=== PATIENT | male | born 1945 | race Caucasian/White ===

== ENCOUNTER 2017-08-08 12:23 | Outpatient (CLI) | payer MEDICARE, MEDICAID | END 2017-08-08 12:24 | disposition critical access hospital (66) | LOC: EMS 12:23 | PROVIDERS: ATTEND Surgery | DX: R06.00 Dyspnea, unspecified (principal) | CPT/HCPCS: A0425; A0427 ==

== ENCOUNTER 2017-09-09 08:00 | Outpatient (CLI) | payer MEDICARE, MEDICAID ==
[2017-09-10 00:05] LABS: BASOPHILS # (AUTO) 0.1 10^3/uL (0.0-0.1); BASOPHILS % (AUTO) 0.6 %; EOSINOPHILS # (AUTO) 0.1 10^3/uL (0.0-0.7); EOSINOPHILS % (AUTO) 0.5 %; LYMPHOCYTES # (AUTO) 0.7 10^3/uL (1.5-3.5); LYMPHOCYTES % (AUTO) 6.1 %; MEAN CORPUSCULAR HEMOGLOBIN 26.3 pg (27.0-31.0); MEAN CORPUSCULAR HGB CONC 32.3 g/dL (32.0-36.0); MEAN CORPUSCULAR VOLUME 81.6 fL (80.0-94.0); MEAN PLATELET VOLUME 8.2 fL (7.4-11.4); MONOCYTES # (AUTO) 0.9 10^3/uL (0.0-1.0); MONOCYTES % (AUTO) 7.1 %; NEUTROPHILS # (AUTO) 10.3 10^3/uL (1.5-6.6); NEUTROPHILS % (AUTO) 85.7 %; PLT - PLATELET COUNT 451 10^3/uL (130-450); RED BLOOD COUNT 4.57 10^6/uL (4.70-6.10)
[2017-09-10 00:26] LABS: ALBUMIN 2.1 g/dL (3.2-5.5); ALBUMIN/GLOBULIN RATIO 0.6 (1.0-2.2); BILIRUBIN,TOTAL 0.5 mg/dL (0.2-1.0); CALCIUM 8.6 mg/dL (8.5-10.3); CREATININE 0.7 mg/dL (0.6-1.2); TOTAL PROTEIN 5.4 g/dL (6.7-8.2)
== END 2017-09-09 08:01 | disposition home or self-care (01) ==
LOC: LAB.R 08:00
DX: J43.9 Emphysema, unspecified (principal); J44.9 Chronic obstructive pulmonary disease, unspecified
CPT/HCPCS: 80053; 85025

== ENCOUNTER 2017-09-09 16:00 | Outpatient (CLI) | payer MEDICARE, OTHER ==
[2017-09-09 18:24] LABS: BASOPHILS # (AUTO) 0.1 10^3/uL (0.0-0.1); BASOPHILS % (AUTO) 0.5 %; EOSINOPHILS # (AUTO) 0.1 10^3/uL (0.0-0.7); EOSINOPHILS % (AUTO) 0.7 %; HGB - HEMOGLOBIN 12.6 g/dL (14.0-18.0); LYMPHOCYTES # (AUTO) 0.7 10^3/uL (1.5-3.5); LYMPHOCYTES % (AUTO) 5.3 %; MEAN CORPUSCULAR HEMOGLOBIN 26.1 pg (27.0-31.0); MEAN CORPUSCULAR HGB CONC 31.8 g/dL (32.0-36.0); MEAN CORPUSCULAR VOLUME 82.2 fL (80.0-94.0); MEAN PLATELET VOLUME 8.1 fL (7.4-11.4); MONOCYTES # (AUTO) 0.9 10^3/uL (0.0-1.0); MONOCYTES % (AUTO) 7.3 %; NEUTROPHILS % (AUTO) 86.2 %; PLT - PLATELET COUNT 471 10^3/uL (130-450); RED BLOOD COUNT 4.81 10^6/uL (4.70-6.10); RED CELL DISTRIBUTION WIDTH 14.2 % (12.0-15.0); WHITE BLOOD COUNT 12.7 x10^3/uL (4.8-10.8)
[2017-09-09 18:36] LABS: ALBUMIN 2.2 g/dL (3.2-5.5); ALBUMIN/GLOBULIN RATIO 0.6 (1.0-2.2); BILIRUBIN,TOTAL 0.4 mg/dL (0.2-1.0); CALCIUM 8.7 mg/dL (8.5-10.3); CREATININE 0.7 mg/dL (0.6-1.2); TOTAL PROTEIN 5.7 g/dL (6.7-8.2)
== END 2017-09-09 16:01 | disposition home or self-care (01) ==
LOC: LAB.R 16:00
DX: L08.9 Local infection of the skin and subcutaneous tissue, unspecified (principal); J44.9 Chronic obstructive pulmonary disease, unspecified
CPT/HCPCS: 80053; 85025

== ENCOUNTER 2017-09-16 16:26 | Outpatient (CLI) | payer MEDICARE, MEDICAID ==
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
== END 2017-09-16 16:27 | disposition home or self-care (01) ==
LOC: PC 16:26
PROVIDERS: ATTEND Nurse Practitioner
DX: Z51.5 Encounter for palliative care (principal); J44.9 Chronic obstructive pulmonary disease, unspecified; E43 Unspecified severe protein-calorie malnutrition; B02.29 Other postherpetic nervous system involvement; H61.23 Impacted cerumen, bilateral; M06.9 Rheumatoid arthritis, unspecified; I10 Essential (primary) hypertension; I73.9 Peripheral vascular disease, unspecified; F41.9 Anxiety disorder, unspecified; R06.09 Other forms of dyspnea; F32.9 Major depressive disorder, single episode, unspecified; Z66 Do not resuscitate
CPT/HCPCS: 99306

== ENCOUNTER 2017-09-29 13:57 | Outpatient (CLI) | payer MEDICARE, MEDICAID | END 2017-09-29 13:58 | disposition critical access hospital (66) | LOC: EMS 13:57 | PROVIDERS: ATTEND Surgery | DX: R06.02 Shortness of breath (principal) | CPT/HCPCS: A0425; A0429 ==

== ENCOUNTER 2017-09-29 14:05 | Inpatient (IN) | payer MEDICARE, MEDICAID ==
[2017-09-29] MEDS ORDERED: IPRATROPIUM/ALBUTEROL 3 ML NEB INH STA (14:09)
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
[2017-09-29] MEDS ORDERED: SODIUM CHLORIDE 0.9% 1,000 ML IV ONE (14:21)
[2017-09-29 14:36] LABS: ABG HCO3 22.8 mmol/L (22.0-26.0); ABG PCO2 47 mmHg (34-45)
[2017-09-29 14:36] LABS: BASOPHILS # (AUTO) 0.1 10^3/uL (0.0-0.1); BASOPHILS % (AUTO) 0.2 %; EOSINOPHILS # (AUTO) 0.1 10^3/uL (0.0-0.7); EOSINOPHILS % (AUTO) 0.3 %; HGB - HEMOGLOBIN 12.6 g/dL (14.0-18.0); LYMPHOCYTES # (AUTO) 1.1 10^3/uL (1.5-3.5); LYMPHOCYTES % (AUTO) 3.7 %; MEAN CORPUSCULAR HEMOGLOBIN 26.3 pg (27.0-31.0); MEAN CORPUSCULAR HGB CONC 31.9 g/dL (32.0-36.0); MEAN CORPUSCULAR VOLUME 82.2 fL (80.0-94.0); MEAN PLATELET VOLUME 7.6 fL (7.4-11.4); MONOCYTES # (AUTO) 1.1 10^3/uL (0.0-1.0); NEUTROPHILS # (AUTO) 26.4 10^3/uL (1.5-6.6); NEUTROPHILS % (AUTO) 91.8 %; PLT - PLATELET COUNT 667 10^3/uL (130-450); RED BLOOD COUNT 4.81 10^6/uL (4.70-6.10); RED CELL DISTRIBUTION WIDTH 15.8 % (12.0-15.0); WHITE BLOOD COUNT 28.8 x10^3/uL (4.8-10.8)
[2017-09-29 14:37] LABS: ABG BASE EXCESS -3.8 mmol/L (-2.0-3.0); ABG OXYGEN SATURATION 100 % (94-98); ABG TCO2 24.2 MMOL/L (21.0-29.0); ALLEN TEST POSITIVE
[2017-09-29 14:38] LABS: ABG PO2 254 mmHg (80-100)
[2017-09-29 14:42] LABS: INR 1.1 (0.8-1.2); PT - PROTHROMBIN TIME 12.1 secs (9.9-12.6)
[2017-09-29] MEDS ORDERED: IOPAMIDOL-300 100 ML VIAL ONE (14:44)
[2017-09-29] MEDS ORDERED: cefTRIAXone 2 GM in SODIUM CHLORIDE 0.9% MINIBAG 100 ML IV STA (14:47)
[2017-09-29] MEDS ORDERED: levoFLOXacin 750 MG/150 ML 750 MG/150 ML BAG IV ONE (14:47)
[2017-09-29 14:50] LABS: ALBUMIN 2.7 g/dL (3.2-5.5); ALBUMIN/GLOBULIN RATIO 0.6 (1.0-2.2); BILIRUBIN,TOTAL 0.6 mg/dL (0.2-1.0); CALCIUM 9.2 mg/dL (8.5-10.3); CREATININE 0.5 mg/dL (0.6-1.2); TOTAL PROTEIN 7.4 g/dL (6.7-8.2)
[2017-09-29 14:51] LABS: PLATELET ESTIMATE, MANUAL INCREASED (>450,000) (NORMAL); PLATELET MORPHOLOGY NORMAL APPEARANCE (NORMAL); RBC MORPHOLOGY (MULTIPLE) NORMAL APPEARANCE (NORMAL)
[2017-09-29 14:53] LABS: DIFFERENTIAL COMMENT MANUAL=AUTO DIFF
[2017-09-29 14:54] LABS: TROPONIN I 0.1 ng/mL (<0.49)
--- NOTE | 2017-09-29 14:55 | XRAY Report ---
EXAM: CHEST RADIOGRAPHY EXAM DATE: 09/29/2017 02:38 PM. CLINICAL HISTORY: Dyspnea. COMPARISON: CT of the chest from 08/08/2017. TECHNIQUE: 1 view. Patient is slightly rotated FINDINGS: Lungs/Pleura: Opacification of the left hemithorax, with pleural fluid in the left base. Comparing to the previous CT, this is probably related to components of loculated pleural fluid. The right lung i s clear but the tip of the right costophrenic angle is excluded from the exam. The right lung is hype rinflated. Irregular interstitial branching pattern, from underlying architectural distortion related to emphysema. Lungs are otherwise unremarkable. Mediastinum: Within exam limitations, the cardiomediastinal contour is normal. Other: None. IMPRESSION: Moderate left-sided pleural effusion, with component of loculation seen on a chest CT fro m 08/08/2017. [facility] Referring Provider Line: [phone] SITE ID: [id number]
[2017-09-29 14:56] LABS: CREATINE KINASE MB 3.4 ng/mL (0.6-6.3)
[2017-09-29] MEDS ORDERED: LACTATED RINGERS 1,000 ML IV STA (15:00)
[2017-09-29] MEDS ORDERED: IOPAMIDOL-300 100 ML VIAL IVP ONE (15:20)
[2017-09-29] MEDS ORDERED: SODIUM CHLORIDE FLUSH 0.9% 10 ML SYRINGE IVP PRN (15:39)
--- NOTE | 2017-09-29 15:56 | CT Report ---
EXAM: CT ANGIOGRAM CHEST EXAM DATE: 09/29/2017 03:24 PM. CLINICAL HISTORY: Dyspnea. COMPARISON: Radiograph today. CT angiogram chest 08/08/2017. TECHNIQUE: Routine helical imaging was performed through the chest in the pulmonary arterial phase. I V Contrast: 80 cc Isovue 300. Reconstructions: Coronal 3-D MIP reconstructions.Sagittal and coronal. In accordance with CT protocol optimization, one or more of the following dose reduction techniques w ere utilized for this exam: automated exposure control, adjustment of mA and/or KV based on patient s ize, or use of iterative reconstructive technique. FINDINGS: Pulmonary Arteries: Diagnostic quality: Generally adequate through the segmental arteries, although there is moderate mot ion artifact involving the segmental basilar left lower lobe pulmonary arteries. No evidence for acut e or chronic pulmonary emboli. RV/LV is within normal limits. There is no interventricular septal bowing. There is no reflux of cont rast material in the IVC. Lungs/Pleura: Moderate to large left pleural effusion which appears loculated, greatest inferiorly, w ithout significant change. No pneumothorax. No right pleural effusion. Extensive bibasilar emphysema. Moderate bilateral upper lung emphysema. Mild right greater than left apical lung scarring. No gener alized interstitial abnormality. Mild bronchial wall thickening and mucous plugging accounting for mo tion artifact in the right base. Mediastinum: Normal. No cardiac enlargement or adenopathy. Thoracic Aorta: Mild calcified plaque without abnormal dilation. Upper Abdomen: Incompletely visualized 4.5 cm lower pole left renal cortical cyst. Other: Chest wall unremarkable. Moderate multilevel lower cervical degenerative disk disease. Mild di ffuse idiopathic skeletal hyperostosis in the lower thoracic spine. IMPRESSION: 1. No pulmonary embolism is identified, although respiratory motion artifact moderately degrades asse ssment in the segmental basilar left lower lobe pulmonary arteries. 2. Moderate to large loculated left pleural effusion, as before. 3. Panlobular emphysema greater in the bases than in the upper lungs, as before. 4. Mild bronchial wall thickening in the basal right lower lobe consistent with chronic bronchitis. [facility] Referring Provider Line: [phone] SITE ID: [id number]
[2017-09-29] MEDS ORDERED: SIMETHICONE CHEW 80 MG TABLET PO PRN (16:38)
[2017-09-29] MEDS ORDERED: IPRATROPIUM/ALBUTEROL 3 ML NEB INH PRN ×2 (16:38→17:25)
[2017-09-29] MEDS: methylPREDNISolone SUCCINATE 125 MG/2 ML VIAL IVP SCH ×2 (17:10→21:34)
[2017-09-29] MEDS: SODIUM CHLORIDE 0.9% 1,000 ML IV SCH (17:55)
[2017-09-29] MEDS ORDERED: MORPHINE 10 MG/ML VIAL IVP SCH (17:59)
[2017-09-29] MEDS ORDERED: LORazepam 2 MG/ML VIAL IVP PRN (17:59)
[2017-09-29] MEDS: SODIUM CHLORIDE FLUSH 0.9% 10 ML SYRINGE IVP SCH (17:59)
[2017-09-29] MEDS: LEVALBUTEROL 1.25 MG/3 ML NEB INH SCH ×2 (18:00→22:16)
[2017-09-29] MEDS: MORPHINE 10 MG/ML VIAL IVP PRN (18:36)
[2017-09-29] MEDS ORDERED: IPRATROPIUM 0.2 MG/ML NEB INH SCH (19:00)
[2017-09-29] MEDS ORDERED: FORMOTEROL FUMARATE NEB 20 MCG/2 ML INH SCH (19:00)
[2017-09-29] MEDS ORDERED: BUDESONIDE 0.5 MG/2 ML NEB INH SCH (19:00)
[2017-09-29] MEDS ORDERED: TIOTROPIUM INHALER INH SCH (21:00)
[2017-09-29] MEDS: MIRTAZAPINE 15 MG TABLET PO SCH (21:34)
[2017-09-30] MEDS: SODIUM CHLORIDE FLUSH 0.9% 10 ML SYRINGE IVP SCH ×3 (02:52→17:26)
[2017-09-30] MEDS: MORPHINE 10 MG/ML VIAL IVP PRN ×3 (03:05→18:30)
[2017-09-30] MEDS: SODIUM CHLORIDE 0.9% 1,000 ML IV SCH ×2 (03:48→15:00)
[2017-09-30] MEDS: methylPREDNISolone SUCCINATE 125 MG/2 ML VIAL IVP SCH ×3 (06:16→21:59)
[2017-09-30] MEDS: PANTOPRAZOLE 40 MG TABLET PO SCH (08:48)
[2017-09-30] MEDS: ENOXAPARIN 40 MG/0.4 ML SYRINGE SUBQ SCH (08:50)
[2017-09-30] MEDS: BUDESONIDE/FORMOTEROL 160/4.5 MCG INHALER INH SCH ×3 (08:51→18:49)
[2017-09-30] MEDS: POLYETHYLENE GLYCOL 3350 17 GM PACKET PO SCH (08:52)
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
[2017-09-30] MEDS: TIOTROPIUM INHALER INH SCH ×2 (10:30→13:23)
[2017-09-30 10:41] LABS: BASOPHILS % (AUTO) 0.2 %; HGB - HEMOGLOBIN 10.6 g/dL (14.0-18.0); LYMPHOCYTES # (AUTO) 0.4 10^3/uL (1.5-3.5); MEAN CORPUSCULAR HEMOGLOBIN 26.9 pg (27.0-31.0); MEAN CORPUSCULAR HGB CONC 32.8 g/dL (32.0-36.0); MEAN CORPUSCULAR VOLUME 81.9 fL (80.0-94.0); MEAN PLATELET VOLUME 7.5 fL (7.4-11.4); MONOCYTES # (AUTO) 0.1 10^3/uL (0.0-1.0); MONOCYTES % (AUTO) 1.2 %; NEUTROPHILS % (AUTO) 94.6 %; PLT - PLATELET COUNT 342 10^3/uL (130-450); RED BLOOD COUNT 3.96 10^6/uL (4.70-6.10); RED CELL DISTRIBUTION WIDTH 15.5 % (12.0-15.0); WHITE BLOOD COUNT 9.5 x10^3/uL (4.8-10.8)
[2017-09-30 10:50] LABS: CALCIUM 8.1 mg/dL (8.5-10.3); CREATININE 0.4 mg/dL (0.6-1.2)
[2017-09-30] MEDS: cefTRIAXone 1 GM in SODIUM CHLORIDE 0.9% MINIBAG 100 ML IV SCH (12:30)
[2017-09-30] MEDS: levoFLOXacin 750 MG/150 ML 750 MG/150 ML BAG IV SCH (13:10)
--- NOTE | 2017-09-30 16:36 | Ultrasound Report ---
ULTRASOUND OF LEFT CHEST: 09/30/2017 CLINICAL INDICATION: Loculated pleural effusion. TECHNIQUE: Real-time scanning was performed with enrollment representative static images obtained. FINDINGS: Ultrasound of the left chest demonstrates a left pleural effusion. A suitable site for percutaneous access was marked for the clinical service. IMPRESSION: MARKING OF LEFT CHEST FOR THORACENTESIS. TD: 09/30/2017 16:24
--- NOTE | 2017-09-30 17:09 | XRAY Preliminary Report ---
Exam: XR CHEST 1 VIEW X-RAY IMPRESSION: 1. Decreased size of now small left pleural effusion with tiny amounts of pleural air at the left lat eral lung base. 2. COPD. [facility] SITE ID: [id number]
--- NOTE | 2017-09-30 17:11 | XRAY Report ---
EXAM: CHEST RADIOGRAPHY EXAM DATE: 09/30/2017 04:45 PM. CLINICAL HISTORY: Status post thoracentesis. COMPARISON: 09/29/2017. TECHNIQUE: 1 view. FINDINGS: Lungs/Pleura: Significant reduction in the left-sided pleural effusion after thoracentesis. Tiny amou nts of pleural air is present at the left lung base laterally. The lungs are hyperinflated. No large right pneumothorax. Mediastinum: Stable cardiac silhouette. Other: None. IMPRESSION: 1. Decreased size of now small left pleural effusion with tiny amounts of pleural air at the left lat eral lung base. 2. COPD. [facility] Referring Provider Line: [phone] SITE ID: [id number]
--- NOTE | 2017-09-30 17:27 | PROVIDER PROGRESS NOTE ---
Assessment/Plan - Problem List (1) COPD exacerbation Assessment/Plan: Much improved respiratory status with iv steroids, iv antibiotics and inhalers, he is refusing nebs. Continue present plan OK to transfer out of ICU. (2) Pleural effusion on left Assessment/Plan: Dr Say Lira performed L thoracentesis today and removed 1100 cc of yellow clody fluid. All counts and labs on the fluid are pending. Will also obtain a cytometry count and pathology eval for malignant cells. (3) Post herpetic neuralgia Assessment/Plan: Stable on meds (4) Deaf Qualifiers: Laterality: bilateral Qualified Code(s): H91.93 - Unspecified hearing loss , bilateral Assessment/Plan: Unchanged. Pt is able to communicate with his RNs - Current Meds Current Meds: Current Medications Generic Name Dose Route Start Last Admin Trade Name Freq PRN Reason Stop Dose Admin Enoxaparin Sodium 40 mg 09/30/17 09:00 09/30/17 08:50 Lovenox SUBQ 40 mg DAILY DRAGAN Administration Sodium Chloride 1,000 mls @ 100 mls/hr 09/29/17 16:00 09/30/17 15:00 Normal Saline 0.9% IV 100 mls/hr .Q10H DRAGAN Administration Levofloxacin 750 mg in 150 mls @ 100 mls/hr 09/30/17 12:00 09/30/17 14:45 Levaquin 750 Mg/150 Ml IV Infused Q24H DRAGAN Infusion Ceftriaxone Sodium 1 gm/ 100 mls @ 200 mls/hr 09/30/17 11:00 09/30/17 13:00 Sodium Chloride IV Infused Q24H DRAGAN Infusion Lorazepam 0.5 mg 09/29/17 17:59 09/29/17 21:44 Ativan Inj (Vial) IVP 0.5 mg Q2H PRN Administration Anxiety Methylprednisolone Sodium Succinate 125 mg 09/29/17 17:00 09/30/17 14:22 Solu-Medrol (125mg Vial) IVP 125 mg TID DRAGAN Administration Mirtazapine 7.5 mg 09/29/17 19:00 09/29/17 21:34 Remeron PO 7.5 mg 1900 DRAGAN Administration Morphine Sulfate 2 mg 09/29/17 18:08 09/30/17 08:49 Morphine IVP 2 mg Q6H PRN Administration Dyspnea Pantoprazole Sodium 40 mg 09/30/17 07:00 09/30/17 08:48 Protonix PO 40 mg QDAC DRAGAN Administration Polyethylene Glycol 17 gm 09/30/17 09:00 09/30/17 08:52 Miralax PO Not Given DAILY DRAGAN Sodium Chloride 10 ml 09/29/17 17:00 09/30/17 12:37 Normal Saline Flush 0.9% IVP 10 ml 0100,0900,1700 DRAGAN Administration Tiotropium Hardy 1 puffs 09/29/17 22:00 09/30/17 13:23 Spiriva INH Not Given RTDAILY DRAGAN - Lab Result Fish Bone Diagrams: 09/30/17 10:26 09/30/17 10:26 - Additional Planning My Orders: My Active Orders 09/29/17 16:38 Simethicone [Mylicon] 160 mg PO PRN PRN 09/29/17 16:41 Nebulizer/MDI Tx. [RC] .Q4/Q4PRN 09/29/17 17:00 methylPREDNISolone SUCCINATE [SOLU-Medrol (125MG VIAL)] 125 mg IVP TID 09/29/17 17:59 LORazepam INJ [Ativan Inj (Vial)] 0.5 mg IVP Q2H PRN 09/29/17 18:08 Morphine Inj [Morphine] 2 mg IVP Q6H PRN 09/29/17 19:00 Mirtazapine [Remeron] 7.5 mg PO 1900 09/30/17 CUL, RESPIRATORY [RM] Urgent 09/30/17 07:00 Pantoprazole [Protonix] 40 mg PO QDAC 09/30/17 09:00 Consult [General Surgery Consult] [CONS] Routine 09/30/17 11:00 cefTRIAXone [Rocephin] 1 gm Sodium Chloride 0.9% Minibag [Normal Saline 0.9% Minibag] 100 ml IV Q24H 09/30/17 12:00 levoFLOXacin 750 MG/150 ML [Levaquin 750 mg/150 ml] 750 mg in 150 ml IV Q24H 09/30/17 16:44 CUL, ANAEROBIC (QUEST) [REFLAB] Routine 09/30/17 16:49 Miscellaneous Laboratory Order [LAB] Urgent 09/30/17 16:50 CUL,BODY FLUID(AEROBIC) [RM] Routine 09/30/17 17:11 CELL COUNT, BF [BF] Urgent 10/01/17 05:00 PHOSPHORUS [CHEM] Routine Subjective - Subjective Patient Reports: Feeling Better Nursing Reports: Other (Refusing nebs, only wants Spiriva and his oyther inhaler , which his family member retrieved from [facility]) Objective Vital Signs: Vital Signs - 24 hr 09/29/17 09/29/17 09/29/17 19:00 20:00 21:00 Temperature Heart Rate Heart Rate [ 103 H 95 97 Monitoring electrodes] Respiratory 22 21 22 Rate Blood Pressure 83/67 L 76/62 L 97/63 [Right Brachial artery] O2 Saturation 93 95 96 09/29/17 09/29/17 09/29/17 22:00 22:09 23:00 Temperature Heart Rate 99 Heart Rate [ 95 97 Monitoring electrodes] Respiratory 25 H 21 26 H Rate Blood Pressure 116/63 101/69 [Right Brachial artery] O2 Saturation 98 96 09/30/17 09/30/17 09/30/17 00:00 01:00 02:00 Temperature Heart Rate Heart Rate [ 97 97 94 Monitoring electrodes] Respiratory 25 H 24 23 Rate Blood Pressure 106/70 107/71 99/76 [Right Brachial artery] O2 Saturation 96 96 100 09/30/17 09/30/17 09/30/17 03:00 04:00 05:00 Temperature Heart Rate Heart Rate [ 96 87 88 Monitoring electrodes] Respiratory 24 29 H 27 H Rate Blood Pressure 104/73 103/71 105/65 [Right Brachial artery] O2 Saturation 100 95 97 09/30/17 09/30/17 09/30/17 06:00 07:00 08:32 Temperature Heart Rate Heart Rate [ 84 95 86 Monitoring electrodes] Respiratory 24 17 24 Rate Blood Pressure 101/71 125/71 125/71 [Right Brachial artery] O2 Saturation 97 96 98 09/30/17 09/30/17 09/30/17 09:42 10:00 11:00 Temperature 36.4 C L Heart Rate Heart Rate [ 97 90 91 Monitoring electrodes] Respiratory 21 23 23 Rate Blood Pressure 122/94 H 114/71 97/68 [Right Brachial artery] O2 Saturation 95 100 97 09/30/17 09/30/17 09/30/17 12:00 13:00 16:06 Temperature Heart Rate Heart Rate [ 99 92 88 Monitoring electrodes] Respiratory 19 26 H 18 Rate Blood Pressure 106/62 104/72 115/84 H [Right Brachial artery] O2 Saturation 99 96 93 Oxygen O2 Source Room air I&O (Last 24 Hrs): Intake and Output Totals x24h 09/28/1718 09/30/17 23:59 23:59 23:59 Intake Total 5587.246 8929.333 Output Total 2250 Balance 1950.333 23.333 General: Alert HEENT: Other (Very [place]) Neck: Supple Neuro: Other ([place], moving all extremities) Respiratory: Other (diminished L>R) Abdomen: Soft Extremities: No edema - Results Results: Laboratory Results WBC 9.5 x10^3/uL (4.8-10.8) 09/30/17 10:26 RBC 3.96 10^6/uL (4.70-6.10) L 09/30/17 10:26 Hgb 10.6 g/dL (14.0-18.0) L 09/30/17 10:26 Hct 32.4 % (42.0-52.0) L 09/30/17 10:26 MCV 81.9 fL (80.0-94.0) 09/30/17 10:26 MCH 26.9 pg (27.0-31.0) L 09/30/17 10:26 MCHC 32.8 g/dL (32.0-36.0) 09/30/17 10:26 RDW 15.5 % (12.0-15.0) H 09/30/17 10:26 Plt Count 342 10^3/uL (130-450) 09/30/17 10:26 MPV 7.5 fL (7.4-11.4) 09/30/17 10:26 Neut # 9.0 10^3/uL (1.5-6.6) H 09/30/17 10:26 Lymph # 0.4 10^3/uL (1.5-3.5) L 09/30/17 10:26 [place] # 0.1 10^3/uL (0.0-1.0) 09/30/17 10:26 Eos # 0.0 10^3/uL (0.0-0.7) 09/30/17 10:26 Baso # 0.0 10^3/uL (0.0-0.1) 09/30/17 10:26 Absolute Nucleated RBC 0.00 x10^3/uL 09/30/17 10:26 Band Neuts % (Manual) Not Reportable 09/29/17 14:28 Abnorm Lymph % (Manual) Not Reportable 09/29/17 14:28 Nucleated RBC % 0.0 /100WBC 09/30/17 10:26 Neutrophils # (Manual) Not Reportable 09/29/17 14:28 Lymphocytes # (Manual) Not Reportable 09/29/17 14:28 Monocytes # (Manual) Not Reportable 09/29/17 14:28 Eosinophils # (Manual) Not Reportable 09/29/17 14:28 Basophils # (Manual) Not Reportable 09/29/17 14:28 Differential Comment MANUAL=AUTO DIFF 09/29/17 14: Manual Slide Review Indicated 09/29/17 14:28 WBC Morphology NORMAL APPEARANCE (NORMAL) 09/29/17 14: Platelet Estimate INCREASED (>450,000) (NORMAL) 09/29/17 14: Platelet Morphology NORMAL APPEARANCE (NORMAL) 09/29/17 14:28 RBC Morph Micro Appear NORMAL APPEARANCE (NORMAL) 09/29/17 14: PT 12.1 secs (9.9-12.6) 09/29/17 14: INR 1.1 (0.8-1.2) 09/29/17 14:28 Bld Gas Analysis Time 1418 09/29/17 14:18 Sample Site RIGHT RADIAL 09/29/17 14:18 ABG pH 7.30 (7.35-7.45) L 09/29/17 14:18 ABG pCO2 47 mmHg (34-45) H 09/29/17 14:18 ABG pO2 254 mmHg (80-100) H* 09/29/17 14:18 ABG HCO3 22.8 mmol/L (22.0-26.0) 09/29/17 14:18 ABG Total CO2 24.2 MMOL/L (21.0-29.0) 09/29/17 14:18 ABG O2 Saturation 100 % (94-98) H 09/29/17 14:18 ABG Oximetry Spot Check 100 % 09/29/17 14:18 ABG Base Excess -3.8 mmol/L (-2.0-3.0) L 09/29/17 14:18 Joao Test POSITIVE 09/29/17 14:18 O2 Delivery Device NON REBREATHER MASK 09/29/17 14:18 O2 Liters/Min 13.00 LPM 09/29/17 14:18 Sodium 137 mmol/L (135-145) 09/30/17 10:26 Potassium 4.1 mmol/L (3.5-5.0) 09/30/17 10:26 Chloride 102 mmol/L (101-111) 09/30/17 10:26 Carbon Dioxide 26 mmol/L (21-32) 09/30/17 10:26 Anion Gap 9.0 (6-13) 09/30/17 10:26 BUN 18 mg/dL (6-20) 09/30/17 10:26 Creatinine 0.4 mg/dL (0.6-1.2) L 09/30/17 10:26 Estimated GFR (MDRD) 210 (>89) 09/30/17 10:26 Glucose 139 mg/dL (70-100) H 09/30/17 10:26 Lactic Acid 2.2 mmol/L (0.5-2.2) 09/29/17 14:28 Calcium 8.1 mg/dL (8.5-10.3) L 09/30/17 10:26 Total Bilirubin 0.6 mg/dL (0.2-1.0) 09/29/17 14:28 AST 27 IU/L (10-42) 09/29/17 14:28 ALT 15 IU/L (10-60) 09/29/17 14:28 Alkaline Phosphatase 109 IU/L (42-121) 09/29/17 14:28 Total Creatine Kinase 25 IU/L (22-269) 09/29/17 14:28 CK-MB (CK-2) 3.4 ng/mL (0.6-6.3) 09/29/17 14:28 Troponin I 0.05 ng/mL (<0.49) 09/30/17 10:26 B-Natriuretic Peptide 110 pg/mL (5-100) H 09/29/17 14:28 Total Protein 7.4 g/dL (6.7-8.2) 09/29/17 14:28 Albumin 2.7 g/dL (3.2-5.5) L 09/29/17 14:28 Globulin 4.7 g/dL (2.1-4.2) H 09/29/17 14:28 Albumin/Globulin Ratio 0.6 (1.0-2.2) L 09/29/17 14:28 Lipase 14 U/L (22-51) L 09/29/17 14:28
[2017-09-30 17:42] LABS: CC,BF RBC 21503 /mm^3
[2017-09-30 17:50] LABS: BF COLOR STRAW; BF SOURCE PLEURAL
[2017-09-30 18:02] LABS: LYMPHOCYTES %,BODY FLUID 10; MACROPHAGES %,BODY FLUID 10 %
[2017-09-30] MEDS: MIRTAZAPINE 15 MG TABLET PO SCH (18:49)
[2017-10-01] MEDS: SODIUM CHLORIDE 0.9% 1,000 ML IV SCH ×3 (01:57→22:33)
[2017-10-01] MEDS ORDERED: MORPHINE 2 MG/ML CARPUJECT ONE (02:02)
[2017-10-01] MEDS: SODIUM CHLORIDE FLUSH 0.9% 10 ML SYRINGE IVP SCH ×3 (02:03→17:06)
--- NOTE | 2017-10-01 03:01 | OPERATIVE REPORT ---
DATE OF SERVICE: 09/29/2017 Physician: Satish Lira MD PREOPERATIVE DIAGNOSIS: Left pleural effusion. POSTOPERATIVE DIAGNOSIS: Left pleural effusion. NAME OF PROCEDURE: Left thoracentesis. SURGEON: Satish Lira MD ANESTHESIA: Local. INDICATIONS FOR PROCEDURE: The patient is a 72-year-old male who presented with shortness of breath in the emergency room. On chest x-ray, CT scan he has moderate to large to left pleural effusions. PROCEDURE: Informed consent was obtained from the patient. The patient's effusion had been marked by radiology ultrasound. This was located in the mid portion left lateral area of the chest. This area was then prepped and draped in usual sterile fashion. The skin overlying the rib was then injected with local anesthesia. The needle was then inserted into the pleural cavity, aspirating some pleural fluid, confirming its location. An incision was then made in the skin. The thoracentesis catheter needle was then inserted through the incision, over the rib and into the pleural cavity. The catheter was then advanced into the pleural space. The catheter was then hooked up to the suction canister and allowed to have the fluid aspirated from the left chest. Approximately 1100 mL was removed. The catheter was then removed and a Band-Aid applied to the insertion site. There were no immediate complications. A stat chest x-ray was ordered. TD: 10/01/2017 02:58
[2017-10-01] MEDS: PANTOPRAZOLE 40 MG TABLET PO SCH (06:13)
[2017-10-01] MEDS: methylPREDNISolone SUCCINATE 125 MG/2 ML VIAL IVP SCH ×3 (06:13→22:37)
[2017-10-01] MEDS: TIOTROPIUM INHALER INH SCH (07:29)
[2017-10-01] MEDS: BUDESONIDE/FORMOTEROL 160/4.5 MCG INHALER INH SCH ×2 (07:29→18:35)
[2017-10-01] MEDS: ENOXAPARIN 40 MG/0.4 ML SYRINGE SUBQ SCH (09:19)
[2017-10-01] MEDS: cefTRIAXone 1 GM in SODIUM CHLORIDE 0.9% MINIBAG 100 ML IV SCH (09:30)
[2017-10-01] MEDS: POLYETHYLENE GLYCOL 3350 17 GM PACKET PO SCH (09:33)
[2017-10-01] MEDS: MORPHINE 2 MG/ML CARPUJECT IVP PRN (10:29)
[2017-10-01] MEDS: levoFLOXacin 750 MG/150 ML 750 MG/150 ML BAG IV SCH (10:30)
[2017-10-01] MEDS: [UNRECOGNIZED DRUG - OTHER] INH PRN ×2 (11:30→15:25)
--- NOTE | 2017-10-01 16:00 | PROVIDER PROGRESS NOTE ---
Subjective - Prog Note Date Prog Note Date: 10/01/17 Prog Note Time: 15:00 - Subjective Pt reports feeling: Improved (The patient is breathing easily. He is much more comfortable since he had a thoracentesis. He denies any new problems. He is eating better and moving his bowels. He is not short of breath at rest.) Current Medications - Current Medications Current Medications: Budesonide, ceftriaxone, Lovenox, levofloxacin, Lorazepam, methylprednisolone, mirtazapine, morphine, pantoprazole, polyethylene glycol, simethicone, sodium chloride, T ectropium Objective - Vital Signs/Intake & Output Reviewed Vital Signs: Yes Vital Signs: Vital Signs x48h Temp Pulse Pulse Resp BP Pulse Ox 10/01/17 15:26 88 19 10/01/17 14:12 96 21 95 10/01/17 11:49 36.4 C L 88 22 113/74 93 10/01/17 09:26 78 27 H 96 Intake & Output: Intake & Output 09/28/17 09/29/17 09/30/17 10/01/17 23:59 23:59 23:59 23:59 Intake Total 6188.244 3587.333 1928.333 Output Total 2250 1150 Balance 1949.333 843.333 778.333 - Objective General Appearance: positive: No acute distress, Alert Eyes Bilateral: positive: Normal inspection, PERRL, EOMI, No lid inflammation, Conjunctivae nml, No scleral icterus ENT: positive: ENT inspection nml, Pharynx nml, No signs of dehydration Neck: positive: Nml inspection, Thyroid nml, No JVD, Trachea midline. negative : Thyromegaly Respiratory: positive: Chest non-tender, No respiratory distress, Breath sounds nml. negative: Wheezes, Rales, Rhonchi Cardiovascular: positive: Regular rate & rhythm, No murmur, No gallop Abdomen: positive: Non-tender, No organomegaly, Nml bowel sounds, No distention. negative: Guarding, Rebound Back: positive: Nml inspection. negative: CVA tenderness (R), CVA tenderness (L ) Skin: positive: Color nml, No rash, Warm, Dry. negative: Cyanosis Extremities: positive: Non-tender, Full ROM, Nml appearance, No pedal edema Neurologic/Psychiatric: positive: Oriented x3, CN's nml (2-12), Motor nml, Sensation nml, Mood/affect nml - Lab Results Fish Bones: 09/30/17 10:26 09/30/17 10:26 Other Labs: Lab Results x24hrs 10/01/17 09/30/17 Range/Units 04:09 16:30 Phosphorus 2.4 L (2.5-4.6) mg/dL Fluid Source PLEURAL Fluid Color STRAW Fluid Clarity HAZY Fluid WBC 02526 /mm^3 Fluid RBC 60832 /mm^3 Fluid Neutrophils % 80 % Fluid Lymphocytes % 10 Fluid Macrophages % 10 % Fld Mesothelial Cell % Not Reportable - Diagnostic Imaging Diagnostic Imaging Results: positive: Final report reviewed Diagnostic Imaging Comments: EXAM: CHEST RADIOGRAPHY EXAM DATE: 09/30/2017 04:45 PM. CLINICAL HISTORY: Status post thoracentesis. COMPARISON: 09/29/2017. TECHNIQUE: 1 view. FINDINGS: Lungs/Pleura: Significant reduction in the left-sided pleural effusion after thoracentesis. Tiny amounts of pleural air is present at the left lung base laterally. The lungs are hyperinflated. No large right pneumothorax. Mediastinum: Stable cardiac silhouette. Other: None. IMPRESSION: 1. Decreased size of now small left pleural effusion with tiny amounts of pleural air at the left lateral lung base. 2. COPD. EXAM: CHEST RADIOGRAPHY EXAM DATE: 09/29/2017 02:38 PM. CLINICAL HISTORY: Dyspnea. COMPARISON: CT of the chest from 08/08/2017. TECHNIQUE: 1 view. Patient is slightly rotated FINDINGS: Lungs/Pleura: Opacification of the left hemithorax, with pleural fluid in the left base. Comparing to the previous CT, this is probably related to components of loculated pleural fluid. The right lung is clear but the tip of the right costophrenic angle is excluded from the exam. The right lung is hyperinflated. Irregular interstitial branching pattern, from underlying architectural distortion related to emphysema. Lungs are otherwise unremarkable. Mediastinum: Within exam limitations, the cardiomediastinal contour is normal. Other: None. IMPRESSION: Moderate left-sided pleural effusion, with component of loculation seen on a chest CT from 08/08/2017. Assessment/Plan - Problem List (1) COPD exacerbation Impression: The patient's respiratory status is much improved since he has been on the IV steroids and antibiotics along with his nebulizer treatments. He is also had a significant improvement since he had left-sided thoracentesis yesterday which removed 1100 cc of yellow cloudy fluid. At this time the patient appears to be stable enough to moved out of the intensive care unit and into the medical surgical floor. Will monitor him closely and address any other issues as they arise. (2) Pleural effusion on left Impression: Dr. Lira performed a left thoracentesis and removed 1100 cc of yellow cloudy fluid. This was found to have high concentration of white blood cells but there were no bacteria identified. (3) Post herpetic neuralgia Impression: Well-controlled, continue home medications (4) Deaf Impression: Longstanding. We have been able to communicate by writing out questions and answers. Qualifiers: Laterality: bilateral Qualified Code(s): H91.93 - Unspecified hearing loss , bilateral
[2017-10-01] MEDS: NEUTRA-PHOS 250 MG TABLET PO SCH (17:15)
[2017-10-01] MEDS: MIRTAZAPINE 15 MG TABLET PO SCH (18:34)
[2017-10-02] MEDS: SODIUM CHLORIDE FLUSH 0.9% 10 ML SYRINGE IVP SCH ×3 (03:33→17:09)
[2017-10-02] MEDS: MORPHINE 2 MG/ML CARPUJECT IVP PRN ×2 (04:06→11:18)
[2017-10-02] MEDS: PANTOPRAZOLE 40 MG TABLET PO SCH (07:00)
[2017-10-02] MEDS: methylPREDNISolone SUCCINATE 125 MG/2 ML VIAL IVP SCH ×3 (07:25→21:46)
[2017-10-02] MEDS: BUDESONIDE/FORMOTEROL 160/4.5 MCG INHALER INH SCH ×2 (08:12→22:07)
[2017-10-02] MEDS: TIOTROPIUM INHALER INH SCH (08:13)
[2017-10-02] MEDS: SODIUM CHLORIDE 0.9% 1,000 ML IV SCH ×2 (08:54→21:08)
[2017-10-02] MEDS: ENOXAPARIN 40 MG/0.4 ML SYRINGE SUBQ SCH (10:35)
[2017-10-02] MEDS: POLYETHYLENE GLYCOL 3350 17 GM PACKET PO SCH (10:35)
[2017-10-02] MEDS: cefTRIAXone 1 GM in SODIUM CHLORIDE 0.9% MINIBAG 100 ML IV SCH (11:19)
[2017-10-02] MEDS: NEUTRA-PHOS 250 MG TABLET PO SCH ×3 (11:19→17:15)
--- NOTE | 2017-10-02 11:58 | Discharge Plan ---
Discharge Plan Disposition: [facility] DC/Xfer Condition: Stable Diet: Cardiac Activity Restrictions: Activity as Tolerated Shower Restrictions: No Driving Restrictions: No No Smoking: If you smoke, Please STOP! Call for help. Follow-up with: Sin Webb DO [Primary Care Provider] -
[2017-10-02] MEDS: levoFLOXacin 750 MG/150 ML 750 MG/150 ML BAG IV SCH (12:14)
--- NOTE | 2017-10-02 12:29 | Discharge Plan ---
"Discharge Plan for SNF / [facility] - DC Plan and Transition Orders Disposition: [facility] DC/Xfer Condition: Stable SNF Transition Orders: Admit to: [Facility] under the care of [Doctor Name] Discharge Diagnosis: [] Medicare Certification: I certify that [facility] halfway care is medically necessary on a continuing basis for any of the conditions for which she/he is receiving care during hospitalization. Notify PCP of admission and forward orders to primary provider for signature. Weight on admission and [Daily/Weekly/Monthly]. Call PCP immediately if weight increases by [Number] pounds or if patient develops dyspnea, chest pain/ tightness or edema. House Bowel Program: [Yes/No] If no BM after 2 days, nurse may give M.O.M. 30ml PO PRN and /or ducolax Supp 1 OH and /or JAMES 250mg P.O., and/or senna 1-2 tabs PO. On day 3 nurse may give repeat above order until residents constipation is resolved. Immunizations: Annual Influenza Vaccine: [Yes/No]. (between Apr 08 and November 05.) Unless allergy or already given Two-Step PPD: [Yes/No] per [facility] [id number] or appropriate documentation of approved exceptions Treatments & Other Orders: [] Oxygen Orders: [] Lab Tests or X-Rays Orders: [] Orthopedic Orders: [Remove Sutures/[place] and Comment]. Medications: PLEASE REFER TO THE DISCHARGE MEDICATION LIST. Insulin Orders? [Yes/No] Diagnosis: Diabetes Initiate hypo and hyperglycemia protocols for BG <70 and BG >375. May check BG prn for signs/symptoms of dysglycemia. Frequency of BG checks: [AC/Meal/HS] Basal Insulin: [] Lantus 100 units / ml inject subq as follows: [] [] Other: [] Correction Insulin: - Select the type of insulin below [Choose: Novolog/Humalog]100 units /ml insulin inject subq per orders indicate below [] LOW DOSE [] MODERATE DOSE [] MODERATE/HIGH DOSE [] HIGH DOSE GB UNITS GB UNITS GB UNITS GB UNITS 61-140 0 UNITS 61-140 0 UNITS 61-140 0 UNITS 61-140 0 UNITS 141-175 1 UNITS 141-175 1 UNITS 141-175 2 UNITS 141-175 3 UNITS 176-225 2 UNITS 176-225 3 UNITS 176-225 4 UNITS 176-225 5 UNITS 226-275 3 UNITS 226-275 5 UNITS 226-275 6 UNITS 226-275 7 UNITS 276-325 4 UNITS 276-325 7 UNITS 276-325 8 UNITS 276-325 9 UNITS 326-375 5 UNITS 326-375 9 UNITS 326-375 10 UNITS 326-375 11 UNITS >375 CONTACT MD >375 CONTACT MD >375 CONTACT MD >375 CONTACT MD Custom Dosing: [Choose: None/Novolog/Humalog] 100 units/ml Insulin inject subq as follows: GB Units 61-140 [] Units 141-175 [] Units 176-225 [] Units 226-275 [] Units 276-325 []Units 326-375 [] Units >375 Contact MD Allergies and Adverse Reactions: Allergies Allergy/AdvReac Type Severity Reaction Status Date / Time formoterol fumarate * AdvReac Respiratory Verified 08/08/17 12:55 [From Perforomist] prednisone AdvReac Nausea Verified 08/08/17 12:55 - Diet Type: Geriatric Texture: Regular Liquids: Thin May have monthly special meal: Yes - Therapies | Activity Therapy: Evaluation | Treat if indicated: PT, OT Rehabilitation Potential: Maximize functional status Activity: Activity as Tolerated Weight Bearing: Full Weight"
--- NOTE | 2017-10-02 12:52 | DISCHARGE SUMMARY ---
Discharge Summary Admit Date: 09/29/17 Discharge Date: 10/02/17 Discharging Provider: Marilu Chappell DO Primary Care Provider: Will Locke Code Status: Attempt Resuscitation Condition at Discharge: Stable Discharge Disposition: [facility] DC/Xfer Discharge Facility Name: [facility] - DIAGNOSES Admission Diagnoses: 1. Acute exacerbation of COPD 2. Pleural effusion 3. Cachexia with calorie malnutrition 4. Severe deafness 5. Peripheral vascular disease 6. Postherpetic neuralgia Discharge Diagnoses with Status of Each Condition: 1. Acute exacerbation of COPD- The patient is much improved, and is breathing easily on room air. 2. Pleural effusion- Drained, over 1100 cc were removed. This was found to be mostly WBCs, no organisms were found. 3. Cachexia with calorie malnutrition- Patient's oral intake improved while hospitalized. 4. Severe deafness- The patient is able to communicate with the nurses and other staff. 5. Peripheral vascular disease - Well-managed at this time. Continue home medications 6. Postherpetic neuralgia- Well-managed at this time. Continue home medications. - HPI History of Present Illness: From Dr. Wood's history and physical: The patient is a 72-year-old white male with a history of hypertension, peripheral vascular disease, severe COPD, chronic hearing loss, rheumatoid arthritis, and herpes zoster with postherpetic neuralgia. The patient was admitted at [facility] approximately 1 month prior for an acute exacerbation of COPD secondary to acute bronchitis. The patient presented to the emergency department from home with severe shortness of breath and a respiratory rate between 30 and 40. He is unable to communicate because of the shortness of breath and he also has severe hearing loss and requires communication with a white board. In the emergency room the doctor noted that there was no report on how long the shortness of breath had been happening at the half-way. The patient is hypoxic with saturations in the 70% range and was tachycardic with a heart rate of 140. The patient received nebulizers and IV steroids in the emergency department and required BiPAP for adequate oxygen saturation and is now being admitted to the intensive care unit. - HOSPITAL COURSE Hospital Course: The patient was admitted to a medical bed, placed on telemetry, given supplemental oxygen, long-acting steroids, and bronchodilators. He began to improve almost immediately. He was restarted on his home medications and his comorbidities were well controlled. He no longer required supplemental oxygen and when asked was anxious to go back home and so this was arranged. - ALLERGIES Allergies/Adverse Reactions: Allergies Allergy/AdvReac Type Severity Reaction Status Date / Time formoterol fumarate * AdvReac Respiratory Verified 08/08/17 12:55 [From Perforomist] prednisone AdvReac Nausea Verified 08/08/17 12:55 - MEDICATIONS Home Medications: Ambulatory Orders Medication Instructions Recorded Confirmed Budesonide/Formoterol Fumarate 2 puffs INH BID 11/16/15 09/29/17 [Symbicort 160-4.5 Mcg Inhaler] Tiotropium [place] [Spiriva] 1 puffs INH DAILY 11/16/15 09/29/17 Acetaminophen 1,000 mg PO Q6H PRN 09/29/17 09/29/17 Albuterol Sulf [Ventolin Hfa 1 - 2 puffs INH Q4HR PRN 09/29/17 09/29/17 Inhaler] Hydrocodone/Acetaminophen 1 tab PO Q4H PRN 09/29/17 09/29/17 [Hydrocodone-Acetamin 5-325 mg] Ipratropium/Albuterol [Duoneb] 3 ml INH Q4H PRN 09/29/17 09/29/17 Mirtazapine 7.5 mg PO 1900 09/29/17 09/29/17 Omeprazole 20 mg PO QDAC 09/29/17 09/29/17 Simethicone [Gas Relief] 160 mg PO PRN PRN 09/29/17 09/29/17 - PHYSICAL EXAM AT DISCHARGE General Appearance: positive: No acute distress, Alert Eyes Bilateral: positive: Normal inspection, PERRL, EOMI ENT: positive: ENT inspection nml, Pharynx nml, No signs of dehydration, Other ( Patient is deaf.) Neck: positive: Nml inspection, Thyroid nml, No JVD, Trachea midline. negative : Thyromegaly Respiratory: positive: Chest non-tender, No respiratory distress, Breath sounds nml. negative: Wheezes, Rales, Rhonchi Cardiovascular: positive: Regular rate & rhythm, No murmur, No gallop Peripheral Pulses: positive: 1+ Abdomen: positive: Non-tender, No organomegaly, Nml bowel sounds, No distention. negative: Guarding, Rebound Back: positive: Nml inspection. negative: CVA tenderness (R), CVA tenderness (L ) Skin: positive: Color nml, No rash, Warm, Dry. negative: Cyanosis Extremities: positive: Non-tender, Full ROM, Nml appearance, No pedal edema Neurologic/Psychiatric: positive: Oriented x3, CN's nml (2-12), Motor nml, Sensation nml, Mood/affect nml - LABS Result Diagrams: 09/30/17 10:26 09/30/17 10:26 - DIAGNOSTIC IMAGING Diagnostic Imaging Results: Final report reviewed Diagnostic Imaging Results Comments: EXAM: CHEST RADIOGRAPHY EXAM DATE: 09/30/2017 04:45 PM. CLINICAL HISTORY: Status post thoracentesis. COMPARISON: 09/29/2017. TECHNIQUE: 1 view. FINDINGS: Lungs/Pleura: Significant reduction in the left-sided pleural effusion after thoracentesis. Tiny amounts of pleural air is present at the left lung base laterally. The lungs are hyperinflated. No large right pneumothorax. Mediastinum: Stable cardiac silhouette. Other: None. IMPRESSION: 1. Decreased size of now small left pleural effusion with tiny amounts of pleural air at the left lateral lung base. 2. COPD. EXAM: CHEST RADIOGRAPHY EXAM DATE: 09/29/2017 02:38 PM. CLINICAL HISTORY: Dyspnea. COMPARISON: CT of the chest from 08/08/2017. TECHNIQUE: 1 view. Patient is slightly rotated FINDINGS: Lungs/Pleura: Opacification of the left hemithorax, with pleural fluid in the left base. Comparing to the previous CT, this is probably related to components of loculated pleural fluid. The right lung is clear but the tip of the right costophrenic angle is excluded from the exam. The right lung is hyperinflated. Irregular interstitial branching pattern, from underlying architectural distortion related to emphysema. Lungs are otherwise unremarkable. Mediastinum: Within exam limitations, the cardiomediastinal contour is normal. Other: None. IMPRESSION: Moderate left-sided pleural effusion, with component of loculation seen on a chest CT from 08/08/2017. - FOLLOW UP Follow Up: with Will Locke in 1 week - TIME SPENT Time Spent in Discharge (Minutes): 40
[2017-10-02] MEDS: [UNRECOGNIZED DRUG - OTHER] INH PRN (17:09)
[2017-10-02] MEDS: MIRTAZAPINE 15 MG TABLET PO SCH (18:58)
[2017-10-02] MEDS: SENNA 8.6 MG TABLET PO SCH (21:09)
[2017-10-02] MEDS: DOCUSATE SODIUM 250 MG CAPSULE PO SCH (21:09)
[2017-10-03] MEDS: SODIUM CHLORIDE FLUSH 0.9% 10 ML SYRINGE IVP SCH ×2 (01:59→12:08)
[2017-10-03] MEDS: MORPHINE 2 MG/ML CARPUJECT IVP PRN (02:05)
[2017-10-03] MEDS: [UNRECOGNIZED DRUG - OTHER] INH PRN ×2 (02:06→13:40)
[2017-10-03] MEDS: SODIUM CHLORIDE 0.9% 1,000 ML IV SCH (04:49)
[2017-10-03] MEDS: methylPREDNISolone SUCCINATE 125 MG/2 ML VIAL IVP SCH ×2 (06:18→13:47)
[2017-10-03] MEDS: PANTOPRAZOLE 40 MG TABLET PO SCH (06:19)
[2017-10-03] MEDS: BUDESONIDE/FORMOTEROL 160/4.5 MCG INHALER INH SCH (07:59)
[2017-10-03] MEDS: TIOTROPIUM INHALER INH SCH (07:59)
[2017-10-03] MEDS: SENNA 8.6 MG TABLET PO SCH (08:37)
[2017-10-03] MEDS: DOCUSATE SODIUM 250 MG CAPSULE PO SCH (08:37)
[2017-10-03] MEDS: NEUTRA-PHOS 250 MG TABLET PO SCH ×2 (08:37→12:44)
[2017-10-03] MEDS: POLYETHYLENE GLYCOL 3350 17 GM PACKET PO SCH (08:38)
[2017-10-03] MEDS: ENOXAPARIN 40 MG/0.4 ML SYRINGE SUBQ SCH (08:38)
[2017-10-03] MEDS ORDERED: SENNA 8.6 MG TABLET PO SCH (09:00)
[2017-10-03] MEDS: cefTRIAXone 1 GM in SODIUM CHLORIDE 0.9% MINIBAG 100 ML IV SCH (12:05)
[2017-10-03] MEDS: levoFLOXacin 750 MG/150 ML 750 MG/150 ML BAG IV SCH (12:44)
[2017-10-03 14:44] VITALS: BP 135/85
--- NOTE | 2017-10-03 15:39 | PROVIDER PROGRESS NOTE ---
Subjective - Prog Note Date Prog Note Date: 10/03/17 Prog Note Time: 12:15 - Subjective Pt reports feeling: No change (Patient feels comfortable. He denies any new pain or anxiety. He has been eating and moving his bowels. He is not short of breath at rest. He denies any fevers or chills.) Current Medications - Current Medications Current Medications: Budesonide, ceftriaxone, Lovenox, levofloxacin, Lorazepam, methylprednisolone, mirtazapine, morphine, pantoprazole, polyethylene glycol, simethicone, sodium chloride, Tiotropium Objective - Vital Signs/Intake & Output Reviewed Vital Signs: Yes Vital Signs: Vital Signs x48h Temp Pulse Pulse Resp BP Pulse Ox 10/03/17 14:43 36.4 C L 89 20 135/85 H 94 10/03/17 13:40 84 22 10/03/17 07:59 76 14 10/03/17 07:46 36.7 C 67 14 164/86 H 97 Intake & Output: Intake & Output 09/30/17 10/01/17 10/02/17 10/03/17 23:59 23:59 23:59 23:59 Intake Total 3093.333 2830.000 3510.000 2578.333 Output Total 2250 1150 1490 1400 Balance 974.270 4922.000 2020.000 1178.333 - Objective General Appearance: positive: No acute distress, Alert Eyes Bilateral: positive: Normal inspection, PERRL, EOMI, No lid inflammation, Conjunctivae nml, No scleral icterus ENT: positive: ENT inspection nml, Pharynx nml, No signs of dehydration Neck: positive: Nml inspection, Thyroid nml, No JVD, Trachea midline. negative : Thyromegaly Respiratory: positive: Chest non-tender, No respiratory distress, Breath sounds nml. negative: Wheezes, Rales, Rhonchi Cardiovascular: positive: Regular rate & rhythm, No murmur, No gallop Abdomen: positive: Non-tender, No organomegaly, Nml bowel sounds, No distention. negative: Tenderness Back: positive: Nml inspection. negative: CVA tenderness (R), CVA tenderness (L ) Skin: positive: Color nml, No rash, Warm, Dry. negative: Cyanosis Extremities: positive: Non-tender, Full ROM, Nml appearance Neurologic/Psychiatric: positive: Oriented x3, CN's nml (2-12), Motor nml, Sensation nml, Mood/affect nml, Sensory loss (Pt is deaf) - Lab Results Fish Bones: 09/30/17 10:26 09/30/17 10:26 Other Labs: Lab Results x24hrs 10/02/17 10/02/17 10/01/17 Range/Units 12:12 07:47 11:52 POC Whole Bld Glucose 167 H 129 H 148 H (70 - 100) mg/dL 09/30/17 09/30/17 Range/Units 11:44 08:02 POC Whole Bld Glucose 126 H 110 H (70 - 100) mg/dL Assessment/Plan - Problem List (1) COPD exacerbation Impression: Patient is stable. He was to be discharged yesterday per social work but there was some sort of delay at the facility. He will be discharged to [facility] this afternoon. Please refer to previous discharge summary for any further information. (2) Pleural effusion on left Impression: Drained, no bacteria seen in Lab. Continue to monitor. (3) Post herpetic neuralgia Impression: Well managed, continue current pain medicines. (4) Deaf Impression: Pt is able to make his wants and needs known. Qualifiers: Laterality: bilateral Qualified Code(s): H91.93 - Unspecified hearing loss , bilateral
== END 2017-10-03 16:10 | DRG 191 ==
LOC: EDUNIT# → ED 14:05 → ICU 15:50
PROVIDERS: ADMIT Nurse Practitioner; ATTEND Hospitalist
PROC: 0W9B3ZX Drainage of Left Pleural Cavity, Percutaneous Approach, Diagnostic (ICD-10-PCS; principal; 2017-09-29)
DX: J44.1 Chronic obstructive pulmonary disease with (acute) exacerbation (principal); J90 Pleural effusion, not elsewhere classified; B02.29 Other postherpetic nervous system involvement; E46 Unspecified protein-calorie malnutrition; Z68.1 Body mass index [BMI] 19.9 or less, adult; R64 Cachexia; F41.9 Anxiety disorder, unspecified; Z66 Do not resuscitate; I73.9 Peripheral vascular disease, unspecified; I10 Essential (primary) hypertension; M06.9 Rheumatoid arthritis, unspecified; M81.0 Age-related osteoporosis without current pathological fracture; Z87.891 Personal history of nicotine dependence; H91.93 Unspecified hearing loss, bilateral
CPT/HCPCS: 36415; 36600; 71045; 71275; 76604; 80048; 80053; 81599; 82550; 82553; 82803; 83605; 83690; 83880; 84100; 84484; 85025; 85610; 87040; 87070; 87150; 87205; 89051; 93005; 94640; 94660; 96365; 96367; 99284; 99291

== ENCOUNTER 2017-11-09 14:35 | Outpatient (CLI) | payer MEDICARE, MEDICAID ==
--- NOTE | 2017-11-09 19:27 | CONSULTATION NOTE ---
Palliative Care Follow Up - Referral Referring Provider: Dr Matt Mohamud Time of Visit: 11/09/2017. 14:35 - 15:35 Referral setting: Hospitalized patient ([facility]) Referral Reason: Pain in upper extremities - Information Sources Records reviewed: RN notes reviewed, Previous records reviewed History/Review of Systems obtained from: Patient, Nursing, Other (Dr Mohamud) Exam limitations: Clinical condition (Patient is profoundly hard of hearing. This visit was conducted with the patient speaking and the TRAVEL PHYSICAL THERAPIST writing on a whiteboard.) - History of Present Illness Update Brief HPI Update: This is a cachectic and very frail 72-year-old male with protein caloric malnutrition and a past medical history of COPD, rheumatoid arthritis, anxiety, post-herpetic neuralgia, and chronic hearing loss. He was sent to the ED in August because of significant shortness of breath, extremely poor living conditions, and severe calorie protein malnutrition with weight loss of 53 pounds (30% of body weight) between April 2017 and September 11, 2017. - Profoundly hard of hearing. - Communication entails using whiteboard or the method to write him questions etc. to which he responds. - He speaks quite clearly. - He has hard packed cerumen in both ears, but refuses irrigation to remove it. - He says he has had problems with his ears his entire life and does not want anyone touching them. - His chief complaint today is a lot of pain in his hands, arms, and upper shoulders, as well as his knees. - His RA is advanced and he has significant deformations of joints in his hands and wrist. - Dr. Mohamud had suggested physical therapy for possible adhesive capsulitis of shoulders. - PT evaluated him today and did not recommend PT --there will be too much pain with little gain. - Dr Mohamud's alternative plan is to refer him to orthopedics, if the patient agrees. - The patient reports current dosing of Bend does not take care of the pain. - He prefers dosing Bend every 8 hours routinely, including waking him up when necessary. - He has an attentive niece -- today she had a service deliver a cute box of 40 Twinkies plus houseplant with a nice card. Social History - Living Situation Living arrangement: senior living ([facility]) Support System: Very little social support, he was living in a mobile home which is uninhabitable and so he cannot return to it. He has a niece with whom he is in contact. He met his adult daughter since he has been hospitalized and in LTC. Medications/Allergies - Medications Home Medications: Ambulatory Orders Medication Instructions Recorded Confirmed Budesonide/Formoterol Fumarate 2 puffs INH BID 11/16/15 11/10/17 [Symbicort 160-4.5 Mcg Inhaler] Tiotropium [place] [Spiriva] 1 puffs INH DAILY 11/16/15 11/10/17 Acetaminophen 1,000 mg PO Q6H PRN 09/29/17 11/10/17 Albuterol Sulf [Ventolin Hfa 1 - 2 puffs INH Q4HR PRN 09/29/17 11/10/17 Inhaler] Hydrocodone/Acetaminophen 1 tab PO Q4H PRN 09/29/17 11/10/17 [Hydrocodone-Acetamin 5-325 mg] Ipratropium/Albuterol [Duoneb] 3 ml INH Q4H PRN 09/29/17 11/10/17 Mirtazapine 7.5 mg PO 1900 09/29/17 11/10/17 Omeprazole 20 mg PO QDAC 09/29/17 11/10/17 Simethicone [Gas Relief] 160 mg PO PRN PRN 09/29/17 11/10/17 House Bowel Program 1 ea PRN PRN 11/10/17 Hydrocodone/Acetaminophen 1 tab PO Q8H 11/10/17 11/10/17 [Hydrocodone-Acetamin 5-325 mg] Multivitamin [Multiple Vitamins] 1 tab PO DAILY 11/10/17 11/10/17 - Allergies Allergies/Adverse Reactions: Allergies Allergy/AdvReac Type Severity Reaction Status Date / Time formoterol fumarate * AdvReac Respiratory Verified 08/08/17 12:55 [From Perforomist] prednisone AdvReac Nausea Verified 08/08/17 12:55 Review of Systems - Constitutional Constitutional: reports: Weakness, Weight loss (Last month showed a weight gain of 6 lbs, but has refused Daniela weights so far. 129.4 lbs 10/06/17. 123 lbs . 125.2 lbs 09/11/17. 178.8 lbs 04/21/17.), Other (cacechtic, extensive muscle wasting) - Ears, Nose & Throat Ears, Nose & Throat: reports: Hearing loss (profound). denies: Hearing aids - Cardiovascular Cardiovascular: reports: Exertional dyspnea, Decr. exercise tolerance - Respiratory Respiratory: reports: SOB with exertion. denies: Cough, SOB at rest - Gastrointestinal Gastrointestinal: reports: Poor appetite. denies: Constipation - Genitourinary Genitourinary: denies: Dysuria - Musculoskeletal Musculoskeletal: reports: Stiffness, Limited range of motion, Joint pain, Joint swelling (severe rheumatoid arthritis), Other (bed bound) - Neurological Neurological: reports: General weakness, Other (h/o post-herpetic neuralgia) - Psychiatric Psychiatric: reports: Anxiety, Other (prickly, refuses care if perceived that he is not treated properly or gently) - Hematologic/Lymphatic Hematologic/Lymphatic: reports: Anemia Physical Exam - Vital Signs Temperature: 97 F Pulse Rate: 87 O2 Saturation: 95 (room air) Blood Pressure: 100/63 (cuff) - Physical Exam General Appearance: positive: No acute distress, Alert Eyes Bilateral: positive: No lid inflammation, Conjunctivae nml ENT: positive: No signs of dehydration Cardiovascular: positive: Regular rate & rhythm Respiratory: positive: No respiratory distress, Diminished throughout Skin: positive: Dryness Extremities: positive: No pedal edema, Joint swelling (RA deformities in hands and joints), Other (significant muscle wasting) Neurologic/Psychiatric: positive: Oriented x3, Flat affect Palliative Care - POLST Patient has POLST: Yes POLST Status: DNR, Comfort Measures Pain: Location (shoulders, arms, hands, knees), Comment (Not controlled with current regimen; requests Bend routine TID) Anorexia: Weight loss (Some weight gain although he has refused this month's weight. October weight is 129.4 lbs, September was 123 lbs. His baseline in Apr 2017 was 178.8 lbs.) Constipation: Comment (Denies. His BMs appear regular. He is on PRN opioids, may need to add bowel meds since he is starting on routine Bend) - Palliative Care Discussion: - "I feel better, and I eat, but my condition is not better." - He just wants "out of here," ([facility]) but realizes there is nowhere else to go. He asked me what is going to happen next. We discussed his staying in LTC. Alternatively, an appropriate adult family home might be an option. - He is ready to , but, "I am not going to kill myself." - His biggest concerns are: (1) having to stay here (2) can't use his arms/hands and he says soon "they will need to feed me" - He expresses regret, saying it is his fault that he got himself into this predicament. But he has the feeling that more should be done to help him. He expresses anger and resignation of his perception that his needs aren't met. "They could lock me in here and forget about me," and "no one tells me anything. " - Part of this issue can be attributed to the difficulty and challenge of staff needing to communicate with him through a white board, very time-consuming and cumbersome. Dr Mohamud uses an ciera on his iPad that facilitates conversation. - Nursing reports that he has frequently refused care and also refuses to be moved out of the bed. His complaint is that staff can hurt him when providing care, that they aren't gentle. - He does appear less negative than my initial visit with him, that he has achieved a measure of acceptance. - Patient confirmed that he wants to keep the POLST as is: DNR and comfort measures. Impression and Recommendations - Palliative Care Impression: This is a 72-year-old male with protein calorie malnutrition, COPD, severe rheumatoid arthritis, anxiety, h/o postherpetic neuralgia, and profound hearing loss. Last month he regained some weight and shown improvement, buthas refused weights this month. He remains bedbound and with significant functional deficits. Pain control of his chronic RA pain in upper extremities not managed by current regimen. PT recently evaluated his possible adhesion capsulitis of shoulder and did not recommend therapy. The patient will be given the choice to consult with orthopedics. His PCP is the medical education manager of [facility] and he will continue to be monitored by Palliative Care for symptom management and transition to Hospice when appropriate. Recommendations/Counseling Done: Adhesive capsulitis, bilateral shoulders: PT did not recommend therapy for this , saying it would be much pain for little gain. Dr Mohamud proposed a consultation with orthopedics, it is up to the patient to decide. Chronic RA pain, upper extremities: Pain not adequately controlled with PRN Bend. Started Bend 5/325 1 tab Q8h routine, in addition to the PRN dosing. Not to exceed 3000mg acetaminophen in 24 hours. Monitor for effectiveness. SOB, r/t COPD: Improved, not using O2 today, O2 sats 95% on room air. Continue Spiriva daily, Symbicort BID, Ventolin HFA as needed. Constipation: Patient denies constipation and nursing notes confirm he has regular bowel movements. We will start to administer routine opioid (Bend), so continue to monitor and add bowel medications as needed. Currently on house bowel program. Protein caloric malnutrition: In October he showed a weight gain (see ROS for details), but has so far refused weights for this month. Monitor and propose adding Ensure and mirtazapine if indicated. He cannot handle utensils well due to deformity of hands from RA. Staff may need to start feeding him. Advanced care planning: Patient confirmed he wants to keep his POLST DNR and comfort care. Follow up monthly and as needed. Time Spent: 60 minutes were spent with more than 50% of the time spent on counseling, education, and coordination of care.
== END 2017-11-09 14:36 | disposition home or self-care (01) ==
LOC: PC 14:35
PROVIDERS: ATTEND Nurse Practitioner
DX: Z51.5 Encounter for palliative care (principal); E46 Unspecified protein-calorie malnutrition; M75.02 Adhesive capsulitis of left shoulder; M75.01 Adhesive capsulitis of right shoulder; M06.9 Rheumatoid arthritis, unspecified; R06.02 Shortness of breath; H91.93 Unspecified hearing loss, bilateral; F41.9 Anxiety disorder, unspecified; B02.29 Other postherpetic nervous system involvement; Z79.891 Long term (current) use of opiate analgesic; M62.81 Muscle weakness (generalized); Z66 Do not resuscitate
CPT/HCPCS: 99310

== ENCOUNTER 2018-01-11 15:15 | Outpatient (CLI) | payer MEDICARE, MEDICAID ==
--- NOTE | 2018-01-11 18:08 | CONSULTATION NOTE ---
Palliative Care Follow Up - Referral Referring Provider: Dr Matt Mohamud Time of Visit: 01/11/2018. 15:15 - 16:00 Referral setting[facility] Referral Reason: Arthritis pain / cachexia - Information Sources Records reviewed: RN notes reviewed, Previous records reviewed History/Review of Systems obtained from: Patient, Nursing, Other (Dr Mohamud) Exam limitations: Clinical condition (Profoundly hard of hearing. This visit was conducted with voice recognition software to "translate" my words into written form.) - History of Present Illness Update Brief HPI Update: This is a cachectic and extremely frail 72-year-old male with worsening protein caloric malnutrition in the past medical history of COPD, rheumatoid arthritis, anxiety, postherpetic neuralgia, and chronic, significant hearing loss. -He was sent to the ED in August due to significant S OB, extremely poor living condition, and severe calorie protein ultrafiltration (weight loss of 53 pounds, 30% of body weight, between April. -He is profoundly hard of hearing so dialog can be laborious and extended. -He may have mental illness and could benefit from specialized psychiatric or psychologic follow-up, though it's quite unlikely he would agree to this. -His moods are labile and he has easily angered and raises his voice, consistently complains about treatment, staff, feels deaf poeple are treated "like lepers" by healthcare workers. -He has a coccyx wound and the facility had made an appointment today for him at [facility] wound clinic that he had agreed to, then refused to go. -Visiting OT therapist had assessed him and recommended he be assisted at meals (due to severe arthritis in hands and in the hopes of helping increase his food intake. The OT also recommended he see a project associate. -Sometimes he's cooperative with beinge fed (today he was, and ate 75% of the meal), other times he sends the staff member away, not in a pleasant way apparently. -He was angry and reactive about the appointment at the [facility] clinic for the coccyx pressure wound, said it's not painful, he didn't do anything to get the wound, it happened since arriving here. He does not respond when I say it's caused by him being in bed all the time. -He says several times that he wants to see a project associate. He actually states , "I promise I'll go." But then adds the caveat, "as long as they don't mess it up." -He is cachectic and has had dramatic weight loss -- 38% since Apr 2017, down to 112 pounds. -Facility does endeavor to serve him ice cream and other high-calorie food and treats; occasionally he'll eat, but refuses often. -He speaks of his niece who has been visiting him, and the shakes she makes with Ramona Tyler ice cream and other ingredients so it ends up being 300-400 calories. I do point out the facility can't match that and he does agree it is unlikely. He doesn't like the shakes they have made him with the small ice cream cups and milk. He doesn't like protein shakes. Social History - Living Situation Living arrangement: intermediate ([facility]) Living Situation: With caregiver(s) Support System: His niece has been trying to help and has been sending "[employer] care packages." She has recently tried to help, but has had to back off due to health and the need to "take care of herself." He also has a daughter, recently reunited after a 30-year separation. She sends him cards monthly. Medications/Allergies - Medications Home Medications: Ambulatory Orders Medication Instructions Recorded Confirmed Budesonide/Formoterol Fumarate 2 puffs INH BID 11/16/15 01/11/18 [Symbicort 160-4.5 Mcg Inhaler] Tiotropium [place] [Spiriva] 1 puffs INH DAILY 11/16/15 01/11/18 Acetaminophen 1,000 mg PO Q6H PRN 09/29/17 01/11/18 Albuterol Sulf [Ventolin Hfa 1 - 2 puffs INH Q4HR PRN 09/29/17 01/11/18 Inhaler] Hydrocodone/Acetaminophen 1 tab PO Q4H PRN 09/29/17 01/11/18 [Hydrocodone-Acetamin 5-325 mg] Mirtazapine 7.5 mg PO 1900 09/29/17 01/11/18 Omeprazole 20 mg PO QDAC 09/29/17 01/11/18 House Bowel Program 1 ea PRN PRN 11/10/17 01/11/18 Hydrocodone/Acetaminophen 1 tab PO Q8H 11/10/17 01/11/18 [Hydrocodone-Acetamin 5-325 mg] Multivitamin [Multiple Vitamins] 1 tab PO DAILY 11/10/17 01/11/18 Ascorbic Acid [Vitamin C] 500 mg PO DAILY MDD for 30 days 01/11/18 01/11/18 only Polyethylene Glycol 3350 [Miralax] 8.5 g PO DAILY 01/11/18 01/11/18 Senna [Senokot] 8.6 mg PO BID 01/11/18 01/11/18 Zinc Sulfate Tablet 220 220 mg PO DAILY MDD for 30 days 01/11/18 only - Allergies Allergies/Adverse Reactions: Allergies Allergy/AdvReac Type Severity Reaction Status Date / Time formoterol fumarate * AdvReac Respiratory Verified 08/08/17 12:55 [From Perforomist] prednisone AdvReac Nausea Verified 08/08/17 12:55 Review of Systems - Constitutional Constitutional: reports: Weakness, Poor appetite, Weight loss (Loss of 66.8 lbs (37%) since Apr 2017. 112 lbs 12/30/17. 129.4 lbs 10/06/17 123 lbs 09/26/17. 125.2 lbs 09/11/17. 178.8 lbs 04/21/17.) - Ears, Nose & Throat Ears, Nose & Throat: reports: Hearing loss (profoundly deaf. Have to shout at him, or use whiteboard, or voice recognition program called Recognizer. It translates spoken word to written.), Other (His ears may be blocked with cerumen. He refuses to have ears touched.). denies: Hearing aids - Cardiovascular Cardiovascular: denies: Exertional dyspnea, Decr. exercise tolerance - Respiratory Respiratory: reports: Cough, SOB with exertion. denies: SOB at rest - Gastrointestinal Gastrointestinal: reports: Constipation, Poor appetite, Early satiety - Genitourinary Genitourinary: denies: Dysuria - Musculoskeletal Musculoskeletal: reports: Limited range of motion, Joint pain (all over), Joint swelling (rheumatoid deformities of hands), Transfer issues (bedbound, mostly refuses to leave bed) - Integumentary Integumentary: reports: Other (pain R side of head, post-herpetic neuralgia) - Neurological Neurological: reports: General weakness - Psychiatric Psychiatric: reports: Behavior disturbances Physical Exam - Vital Signs Temperature: 96.6 F Pulse Rate: 78 O2 Saturation: 95 Blood Pressure: 104/65 (wrist cuff) - Physical Exam General Appearance: positive: Alert, Mild distress, Other (Cachectic, skin and bones) Eyes Bilateral: positive: Conjunctivae nml, No scleral icterus ENT: positive: Dry mucous membranes Neck: positive: Trachea midline, Stiff neck Cardiovascular: positive: Regular rate & rhythm, No murmur Respiratory: positive: No respiratory distress, Diminished in bases. negative: Wheezes Abdomen: positive: Taut Skin: positive: Dryness, Pressure wound (Coccyx. Agreed to wound care appointment at [facility], scheduled for today. He refused to go. Complains that it's not painful, it's the rheumatoid arthritis that's painful.) Extremities: positive: Pedal edema (selling in feet, R more than L) Neurologic/Psychiatric: positive: Other (angry, easily roused, labile mood, complaints and criticism) Palliative Care - POLST Patient has POLST: Yes POLST Status: DNR, Selective Treatment Pain: Location (All his joints, and R side of face/head from post-herpetic neuralgia. Denies pain in coccyx wound) Sleep: Sleeps well, Other (Says he sleeps too much, that's all there is to do) Constipation: Yes, Comment (days without BMs, can have hard stools, he says he has been disimpacted) Feelings of wellbeing/Perceived Quality of Life: Poor - Palliative Care Discussion: He confirms and reconfirms he wants to see a project associate for his joint pain, and he "promised" he will go to the appointment. But he did add a caveat, "as long as they don't mess it up." It will be important to communicate with him exactly what it will entail -- getting out of bed, transport[place], exhausting day, and possibly tests. From staff's experience with his patterns of agreeing and subsequently refusing (physical therapy, getting fed by staff, [facility] wound clinic), they expect him to ultimately refuse to go. I think it's valuable to give him the opportunity to have a consultation , and provide him the opportunity to follow through. The patient is easily roused to anger, verbally lashes out, and has poor insight into his own role in his situation. He complains that health care staff treat deaf people "like lepers." The staff do make consistent efforts to communicate and work with him. They use white board to write, and he can hear if the speaker speaks extremely loud (shouts), medical practitioners uses Recognizer voice recognition program, which works fairly well, though it's not conducive to have a meaningful and flexible dialog. He received a greeting card while I was there, apparently from his daughter ( recently reunited after a 30 year separation). I said something about it, and his response was, "She sends a card every month, even when it's not called for. " He received a gift package from his niece on my last visit, and apparently she has routinely sent gift packages of food to him, and tried to help out with getting him to eat. So he does have support from family, but his niece told Hayley BECKETT she is going to back off on her involvement, in order to preserve her own health. Impression and Recommendations - Palliative Care Impression: This is a 72-year-old male with severe protein calorie malnutrition who continues to lose weight at an alarming rate. Various approaches have not helped. He certainly qualifies for hospice if that matched his goals, but at present he wants to pursue treatment with a project associate in hopes of controlling his pain. Palliative care will continue to help monitor and try to transition to hospice when appropriate. Recommendations/Counseling Done: COPD: Stable with Spiriva, Symbicort, and Ventolin. Constipation: He reports days without bowel movements, and at least one instance of disimpaction. I'm increasing Senna to 8.6mg BID and changing Miralax to 1/2 dose (1/2 capful or 7.5 g) in 4-8 oz fluid daily. If he has loose stools, hold Miralax until resolved, then restart at 1/4 dose (1/4 capful) . Rheumatoid arthritis: Pain not improved. Current med regimen of [place] ( routine and PRN) plus Tylenol PRN helps (he notes pain is worse when he doesn't take them), but not enough. Patient wants to consult with rheumatology, and "promises" he will go if [facility] arranges the appointment ("if they don't mess it up.") Staff should clearly communicate what this will entail: [place] and [place]ing day. He does complain (in this visit and previous visits) that he doesn't know what is going on. Staff expresses the concern that he will ultimately refuse to go, but I recommend giving him every opportunity to have a consultation, and to make every effort to help him meet his goal. Failure to thrive: Continued weight loss, now 112 lbs. Refuses meals often, refuses staff help with feeding him (which has improved intake, when he's let them feed him), doesn't like ice cream shakes made by the facility, doesn't like protein shakes. Is on mirtazapine 7.5mg. We could increase that dose, or switch to Megace. I'll talk to medical practitioners, but I don't hold out much hope that those meds help. The patient's most unfortunate pattern is persistent refusal, push-back and dissatisfaction with various approaches to try to help. Advanced care planning: No changes to POLST: DNR and selective. His weight loss would qualify him for Hospice, if comfort care is his goal, but today he has been very clear he wants to pursue possible treatment with rheumatology. Follow up visit in 4-8 weeks, sooner as needed. Time Spent: 45 minutes were spent with more than 50% of the time spent on counseling, education, and coordination of care.
== END 2018-01-11 15:16 | disposition home or self-care (01) ==
LOC: PC 15:15
PROVIDERS: ATTEND Nurse Practitioner
DX: Z51.5 Encounter for palliative care (principal); J44.9 Chronic obstructive pulmonary disease, unspecified; K59.00 Constipation, unspecified; M06.9 Rheumatoid arthritis, unspecified; R62.7 Adult failure to thrive; E46 Unspecified protein-calorie malnutrition; H91.93 Unspecified hearing loss, bilateral; B02.29 Other postherpetic nervous system involvement; M62.81 Muscle weakness (generalized); Z66 Do not resuscitate
CPT/HCPCS: 99310

== ENCOUNTER 2018-02-07 14:40 | Outpatient (CLI) | payer MEDICARE, MEDICAID | END 2018-02-07 14:41 | disposition home or self-care (01) | LOC: LAB.R 14:40 | PROVIDERS: ATTEND Family Medicine | DX: S31.000A Unspecified open wound of lower back and pelvis without penetration into retroperitoneum, initial encounter (principal) | CPT/HCPCS: 87070; 87205 ==

== ENCOUNTER 2018-02-21 13:55 | Outpatient (CLI) | payer MEDICARE, MEDICAID ==
--- NOTE | 2018-02-21 20:28 | CONSULTATION NOTE ---
Palliative Care Follow Up - Referral Referring Provider: Dr Matt Mohamdu Time of Visit: 02/21/2018. Referral setting: Group Home Facility ([facility]) Referral Reason: Malnutrition/weight loss/functional decline - Information Sources Records reviewed: RN notes reviewed, Previous records reviewed History/Review of Systems obtained from: Patient, Nursing, Other (pharmacy technician program director; speech therapist, citrus fruit packer) Exam limitations: Clinical condition (Profoundly hard of hearing. White board or voice recognition software required to communicate with patient) - History of Present Illness Update Brief HPI Update: -Cachectic, extremely frail, and deaf 73-year-old male with significantly worsening protein caloric malnutrition. -Medical history: COPD, severe protein calorie malnutrition, severe rheumatoid arthritis, significant bilateral hand deformity secondary to RA, anxiety, postherpetic neuralgia, chronic significant hearing loss. -He was sent to ED August 2017 due to significant SOB, extremely poor living conditions, and severe calorie protein malnutrition. He had a weight loss of 53 pounds, 30% of body weight, between April 2017 (178.8 lbs) and September 2017. He currently weighs 110 pounds, a 38% loss. -After hospitalization he was transferred to [facility], where he has been living ever since. -Profound hearing loss. Requires white board or voice recognition software to communicate with him (he is verbal and articulate). Patient has not permitted anyone to treat or look at his ears. -Patient has persistent history of asking for or agreeing to something (medicine , therapy, follow up consultation), then refusing when the time came to do it. On the previous palliative care visit he had insisted he wanted to see a retail beauty specialist (see 01/11/18 palliative care note), and subsequently changed his mind with the reality of having to leave [place] bed and [place]. -He has complained of his chronic pain in the past. -Pain is facial (post-herpetic neuralgia), musculoskeletal, and RA. Nursing states he doesn't c/o pain when immobile, but complains when moving or being moved. -Today he is not complaining, states it is at baseline. -I spoke to the patient about switching to methadone (or another long-acting pain reliever) and he is agreeable to this. -Patient continues to lose weight. When asked about this, his response is "I eat what I eat. I don't eat vegetables; they still serve me vegetables." -He has shown affinity for [employer] shakes which his niece had been supplying him at one time. The facility has also provided shakes with regular ice cream, his response has been varied. As for Ensure, he "can't stand the stuff." -OT has tried to start him on the universal cuff which helps hold the utensil in instances of lacking fine motor skills. -He has not wanted help with feeding, but becomes angry if not helped. -Patient was recently treated with antibiotics for sebaceous cyst on his back. -Patient states he has nothing to live for, no one on the outside. -His niece, Doroteo Logan was involved for a time in his care, sending him packages of goodies and trying to act as his advocate. Apparently she is no longer doing so. -When I inquired whether I could contact his niece, he said no, it was not necessary, no one needs to be contacted. I inquired about his daughter (Nel Leon), and he does not want her contacted either. Social History - Living Situation Living arrangement: senior care ([facility]) Support System: Patient states he "has no one and nothing" on the outside. His niece, Doroteo Logan, , tried to act as an advocate for him at one point. His daughter, Nel Leon [phone] (M) and [phone] (H), was estranged from him most of her life, there was a reunion after he was admitted to [facility]. It appears that there is no current contact. Medications/Allergies - Medications Home Medications: Ambulatory Orders Medication Instructions Recorded Confirmed Budesonide/Formoterol Fumarate 2 puffs INH BID 11/16/15 02/22/18 [Symbicort 160-4.5 Mcg Inhaler] Tiotropium [place] [Spiriva] 1 puffs INH DAILY 11/16/15 02/22/18 Acetaminophen 1,000 mg PO Q6H PRN 09/29/17 02/22/18 Albuterol Sulf [Ventolin Hfa 1 - 2 puffs INH Q4HR PRN 09/29/17 02/22/18 Inhaler] Hydrocodone/Acetaminophen 1 tab PO Q4H PRN 09/29/17 02/22/18 [Hydrocodone-Acetamin 5-325 mg] Mirtazapine 7.5 mg PO 1900 09/29/17 02/22/18 Omeprazole 20 mg PO QDAC 09/29/17 02/22/18 House Bowel Program 1 ea PRN PRN 11/10/17 02/22/18 Hydrocodone/Acetaminophen 1 tab PO Q8H 11/10/17 02/22/18 [Hydrocodone-Acetamin 5-325 mg] Multivitamin [Multiple Vitamins] 1 tab PO DAILY 11/10/17 02/22/18 Ascorbic Acid [Vitamin C] 500 mg PO DAILY MDD for 30 days 01/11/18 02/22/18 only Polyethylene Glycol 3350 [Miralax] 8.5 g PO DAILY 01/11/18 02/22/18 Senna [Senokot] 8.6 mg PO BID 01/11/18 02/22/18 Zinc Sulfate Tablet 220 220 mg PO DAILY MDD for 30 days 01/11/18 02/22/18 only Saccharomyces Boulardii [Florastor] 250 mg PO BID 02/22/18 02/22/18 Simethicone [Gas Relief] 160 mg PO DAILY PRN 02/22/18 02/22/18 raNITIdine [Zantac] 150 mg PO DAILY 02/22/18 02/22/18 - Allergies Allergies/Adverse Reactions: Allergies Allergy/AdvReac Type Severity Reaction Status Date / Time formoterol fumarate * AdvReac Respiratory Verified 08/08/17 12:55 [From Perforomist] prednisone AdvReac Nausea Verified 08/08/17 12:55 Review of Systems - Constitutional Constitutional: reports: Weakness, Weight loss (110 lbs 02/12/18. 120.2 lbs . 1114 lbs . 112.6 lbs 12/22/17. 125.2 lbs 09/11/17. 178.8 lbs . 38% weight decrease between Apr 2017 to February 2018.) - Ears, Nose & Throat Ears, Nose & Throat: reports: Hearing loss (Profound hearing loss. Pt is verbal. Staff uses white board or voice recognition software to communicate.) - Cardiovascular Cardiovascular: reports: Decr. exercise tolerance. denies: Chest pain - Respiratory Respiratory: denies: SOB at rest - Gastrointestinal Gastrointestinal: reports: Constipation (episodic) - Genitourinary Genitourinary: reports: Incontinence - Musculoskeletal Musculoskeletal: reports: Joint pain, Transfer issues (Remains in bed most of time; refuses to transfer or be put in wheelchair) - Integumentary Integumentary: reports: Lumps (On back has sebaceous cyst just treated; also lumps that have not erupted) - Neurological Neurological: reports: General weakness - Psychiatric Psychiatric: reports: Other (Chronically angry) Physical Exam - Vital Signs Temperature: 97.6 F Pulse Rate: 80 O2 Saturation: 93 (room air) Blood Pressure: 88/58 (R wrist cuff) - Physical Exam General Appearance: positive: No acute distress, Alert, Other (cacechtic; skeletal; severe muscle wasting of extremities) Eyes Bilateral: positive: No lid inflammation, Conjunctivae nml, No scleral icterus ENT: positive: Other (Refuses anyone to touch or look at his ears) Neck: positive: Trachea midline Cardiovascular: positive: Regular rate & rhythm, No murmur Respiratory: positive: Chest non-tender, No respiratory distress, Diminished throughout Skin: positive: Other (sebaceous cyst on back, with several other lumps. Did not inspect due to patient's pain with movement.) Extremities: positive: Joint swelling (RA), Other (severe muscle wasting of upper and lower extremities. Feet are warm. Both hands severely deformed/ contracted from RA) Neurologic/Psychiatric: positive: Oriented x3, Other (Chronically angry. He speaks aloud to himself, and is self-aware that he does.) Palliative Care - POLST Patient has POLST: Yes POLST Status: DNR, Selective Treatment - Palliative Care Discussion: Patient states several times that he has no one and nothing for him outside of the facility. He also states he is ready to at anytime. pharmacy technician program director says they have tried bringing in counseling for him. He did refuse to have me contact his niece, or his daughter, to update them. He said they did not need to know. He also said he doesn't have contact with his daughter, that they had lived most of their lives without each other. I did inquire how he was emotionally, how he was feeling. He gave a shrug and a neutral answer. When I asked him if he would like to speak to the health and wellness instructor, he declined, saying he is not sikh. I asked patient about transitioning him to hospice, writing that it was for end of life when comfort is the focus and no curative treatment is sought, and the philosophy is to not prolong life, and not hasten . Patient was ok with this, verbally indicated he is agreeable to going into Hospice, he understands he can remain at [facility]. Patient is challenging to care for because he presents as angry and belligerent , but he also recognizes kindness and can show appreciation. He is also challenging in that he complains of the care and how he is treated or not treated, but refuses treatment or declines to do/participate/try something he previously said he was agreeable to. He has consistent complaints about being left alone, deaf people being treated like lepers, not being treated gently enough. Staff's experience is that he tells them to go, leave him alone, refuses therapy , or treatment or other ways they try to help. This week OT has been trialing several strategies to decrease pain in his shoulders, but without finding anything effective. Patient has declined isotoner gloves or alternate positioning strategies. OT has trialed u-cuff and several types of adaptive utensils which pt did not like. Patient is able to feed himself and would have less spillage if he were wiling to sit more upright for meals. He continues to self feed in a near-supine position, and declines any positioning interventions or any time out of bed. Impression and Recommendations - Palliative Care Impression: Cachectic, extremely frail, and deaf 73-year-old male with significantly worsening protein caloric malnutrition and a history of COPD, severe RA deformities of hands. He continues to lose weight, now at 110lbs (38% loss) despite facility's and staff's efforts to help and improve his intake. His chest imaging was negative for malignancy, but he has no GI imaging. Patient is mainly bedridden by choice and pain levels when being moved, and refuses transfers out of bed most of the time, and particularly any sort of transfer and transport. He is agreeable to transition to Hospice service. Recommendations/Counseling Done: Pain, RA and post-herpetic neuralgia: Currently using [place] 5/325 BID and also q4h PRN. No complaints of pain when immobile, but consistently complains when being moved. Consulted with Hospice medical insurance claims specialist about switching to a long- acting, methadone was considered, as was fentanyl but there is still conflicting information on absorption without body fat. I discussed switching to methadone with patient, he is agreeable. I will not make the switch but leave it with Hospice considering the follow up and monitoring required. Protein calorie malnutrition: Worsening. 38% decline in body weight -- 110 lbs currently, from 178.8 lbs Apr 2017. OT suggestions and ideas not accepted by patient. Advanced care planning: [facility] with [facility] claims [facility] and recommend Hospice for this patient since it is consistent with patient's goals, and patient meets medical criteria. Transition to Hospice. Time Spent: 75 minutes were spent with more than 50% of the time spent on counseling, education, and coordination of care.
== END 2018-02-21 13:56 | disposition home or self-care (01) ==
LOC: PC 13:55
PROVIDERS: ATTEND Nurse Practitioner
DX: Z51.5 Encounter for palliative care (principal); M06.9 Rheumatoid arthritis, unspecified; B02.29 Other postherpetic nervous system involvement; E46 Unspecified protein-calorie malnutrition; R46.89 Other symptoms and signs involving appearance and behavior; H91.93 Unspecified hearing loss, bilateral; J44.9 Chronic obstructive pulmonary disease, unspecified; Z91.19 Patient's noncompliance with other medical treatment and regimen; Z66 Do not resuscitate; Z74.01 Bed confinement status; Z79.891 Long term (current) use of opiate analgesic
CPT/HCPCS: 99310